=== PATIENT | female | born 1970 | race Caucasian/White ===

== ENCOUNTER 2020-09-25 06:56 | Outpatient (CLI) | payer OTHER, SELFPAY ==
[2020-09-25 09:25] LABS: Alanine Aminotransferase 25 U/L (14-59); Albumin Level 3.6 g/dL (3.4-5.0); Alkaline Phosphatase 102 U/L (46-116); Anion Gap 5 mmol/L (8-16); Aspartate Amino Transferase 17 U/L (15-37); Bilirubin,Total 0.6 mg/dL (0.00-1.00); Blood Urea Nitrogen 12 mg/dL (7-18); Calcium 9.2 mg/dL (8.5-10.1); Carbon Dioxide 32 mmol/L (21-32); Chloride 102 mmol/L (98-108); Cholesterol 170 mg/dL (0-200); Estimated Glomerular Filt Rate > 60; Glucose 93 mg/dL (70-99); HDL Direct 66 mg/dL (40-60); LDL Cholesterol Calculated 91 mg/dL (<130); Osmolality Calculated 287 mOsm/kg (285-295); Sodium 139 mmol/L (136-145); Total Protein 7.6 g/dL (6.4-8.2); Triglycerides 63 mg/dL (0-150)
== END 2020-09-25 06:57 | disposition home or self-care (01) ==
PROVIDERS: PCP Family Medicine
DX: E78.2 Mixed hyperlipidemia (principal)
CPT/HCPCS: 36415; 80053; 80061

== ENCOUNTER 2020-12-21 06:41 | Emergency (ER) | payer OTHER, SELFPAY ==
--- NOTE | ~2020-12-21 | XR_ITS ---
XR shoulder RT min 2V 12/21/2020 08:08 Indication: Right shoulder Procedure: 4 views right shoulder Comparison: No prior studies for comparison. Findings: No fracture, subluxation or dislocation. There is anatomic alignment of the right shoulder. There is calcific tendinopathy. Impression: 1: No acute bone or joint abnormality. Reviewed, dictated and finalized at location A. Impression: 1: No acute bone or joint abnormality.
--- NOTE | ~2020-12-21 | XR_ITS ---
EXAMINATION: XR chest 1V portable 12/21/2020 08:08 INDICATION: Left-sided chest pain PROCEDURE: AP upright view of the chest COMPARISON: 09/02/2006 FINDINGS: The lungs are clear. The cardiomediastinal silhouette is within normal limits. There are no pleural effusions. There is no pneumothorax suspected. IMPRESSION: 1: NO ACUTE CARDIOPULMONARY DISEASE. Reviewed, dictated and finalized at location A.
[2020-12-21 06:50] VITALS: BP 124/84; PULSE 79; RESP 20; TEMP 36.4; O2SAT 99
--- NOTE | 2020-12-21 07:33 | ECG_ITS ---
Measurements Intervals [place] Rate: 71 P: 37 MI: 144 QRS: -14 QRSD: 94 T: 24 QT: 342 QTc: 374 Interpretive Statements SINUS RHYTHM INCOMPLETE RIGHT BUNDLE BRANCH BLOCK LOW QRS VOLTAGE IN PRECORDIAL LEADS BASELINE ARTIFACT- I, II, III, AVR, AVF, V1-V2 BORDERLINE ECG Electronically Signed On 12-22-2020 9:50:02 CDT by Mynor Solorio D.O.
[2020-12-21] MEDS: KETOROLAC (*BKC) 60 MG/2 ML VIAL IM (07:46)
[2020-12-21] MEDS: ASPIRIN 325 MG ENTERIC TABLET PO (07:46)
[2020-12-21 08:02] LABS: Basophils Absolute Auto 0.03 K/mm3 (0.00-0.10); Basophils Percent Auto 0.4 % (0.0-1.0); Eosinophils Absolute Auto 0.05 K/mm3 (0.02-0.50); Eosinophils Percent Auto 0.7 % (1.0-6.0); Immature Granulocyte Absolute 0.02 K/mm3 (0.00-0.00); Immature Granulocyte Percent A 0.3 % (0.0-0.0); Lymphocytes Absolute Auto 1.07 K/mm3 (1.10-4.50); Lymphocytes Percent Auto 15.2 % (18.0-42.0); Mean Corpuscular HGB Conc 32.5 g/dL (32.0-36.0); Mean Corpuscular Hemoglobin 29.7 pg (27.0-31.0); Mean Corpuscular Volume 91.5 fL (78.0-102.0); Mean Platelet Volume 9.1 fl (9.2-11.8); Monocytes Absolute Auto 0.49 K/mm3 (0.10-0.90); Neutrophils Absolute Auto 5.4 K/mm3 (1.7-7.2); Neutrophils Percent Auto 76.4 % (50.0-70.0); Platelet Count Result 350 K/mm3 (150-420); Red Blood Count 4.37 M/mm3 (4.20-5.40); Red Cell Distribution Width 13.2 % (11.6-14.4)
--- NOTE | 2020-12-21 09:52 | ED.UPPEXIN ---
HPI - Extremity Injury (Upper) General Chief Complaint: Extremity Injury, Upper Stated Complaint: right arm pain Time Seen by Provider: 12/21/20 07:04 Source: patient and RN notes reviewed Mode of arrival: ambulatory Limitations: no limitations History of Present Illness complaint: injury to: right and shoulder Onset (ago): day(s) (4) Other Extremity Injury: Right: shoulder Other injuries: none Place: home Severity: moderate Severity scale (1-10): 8 Relieving factors: rest Exacerbating factors: movement of extremity Associated symptoms: other (left chest pain) Related Data Home Medications Medication Instructions Recorded Confirmed bupropion HCl 150 mg PO DAILY 12/21/20 12/21/20 Allergies Allergy/AdvReac Type Severity Reaction Status Date / Time clopidogrel [Plavix] Allergy Intermediate Unknown Verified 12/21/20 08:25 Sulfa (Sulfonamide Allergy Unknown Verified 12/21/20 08:25 Antibiotics) Review of Systems Review of Systems: All systems reviewed & are unremarkable except as noted in HPI and below Constitutional: Constitutional: Reports as per HPI and Reports no additional constitutional complaints Eyes: Eyes: Reports as per HPI and Reports no additional eye complaints ENT: Reports system reviewed and no additional complaints, except as documented and Reports as per HPI Cardiovascular: Cardiovascular: Reports as per HPI, Reports no additional cardiovascular complaints and Reports chest pain Respiratory: Respiratory: Reports as per HPI and Reports no additional respiratory complaints Gastrointestinal: Gastrointestinal: Reports as per HPI and Reports no additional gastrointestinal complaints Genitourinary: Genitourinary: Reports no additional female genitourinary complaints and Reports as per HPI Musculoskeletal: Musculoskeletal: Reports no additional musculoskeletal complaints and Reports as per HPI Integumentary/Breasts: Skin/Breast: Reports system reviewed and no additional complaints, except as docu and Reports as per HPI Neurologic: Reports system reviewed and no additional complaints, except as documented and Reports as per HPI Psychiatric: Psychiatric: Reports no additional psychiatric complaints and Reports as per HPI Endocrine: Endocrine: Reports no additional endocrine complaints and Reports as per HPI Hematologic/Lymphatic: Hematologic/Lymphatic: Reports no additional hematologic/lymphatic complaints and Reports as per HPI Allergic/Immunologic: Allergic/Immunologic: Reports no additional allergic/immunologic complaints and Reports as per HPI PMF Past Medical History Medical History Myocardial infarction Other sprain of right shoulder joint, initial encounter Exam Const: General: no acute distress and alert Nutritional Appearance: well nourished Orientation/consciousness: patient oriented x3 Limitations: no limitations HENMT: Head: normal to inspection Ears: external ears normal and TM's normal bilaterally General nose exam: Normal external nose present and Normal nares present Mouth: Yes lip normal and Yes moist mucous membranes Teeth and gingiva: dentition normal Throat: posterior oropharynx normal Eyes: Conjunctivae: conjunctivae normal Pupils: Equal, round and reactive pupils present EOM: EOMs intact bilaterally Neck: Neck: normal visual inspection and no lymphadenopathy Chest: Chest palpation & inspection: normal inspection of the chest Other: no acute chest wall Resp: Effort & Inspection: normal respiratory effort Auscultation: clear to auscultation bilaterally Cardio: Rate: regular rate Rhythm: regular rhythm GI: GI Palp: Yes Soft to palpation Percussion: Yes normal to percussion Auscultation: normal bowel sounds : General: Yes no CVA tenderness Back/Spine/Pelvis: Back: no CVA tenderness Skin: General skin exam: normal color Rashes: no rashes Neuro: General: patient oriented x3, moves all
[2020-12-21 10:00] VITALS: RESP 17
[2020-12-21 10:33] LABS: Anion Gap 9 mmol/L (8-16); Blood Urea Nitrogen 13 mg/dL (7-18); Carbon Dioxide 26 mmol/L (21-32); Chloride 103 mmol/L (98-108); Estimated CRCL calculation 91 ml/min; Estimated Glomerular Filt Rate > 60; Potassium 3.9 mmol/L (3.5-5.1); Sodium 138 mmol/L (136-145)
[2020-12-21 10:34] LABS: Alanine Aminotransferase 16 U/L (14-59); Aspartate Amino Transferase 35 U/L (15-37); Bilirubin,Total 0.5 mg/dL (0.00-1.00); Calcium 9.3 mg/dL (8.5-10.1); Glucose 99 mg/dL (70-99); Osmolality Calculated 286 mOsm/kg (285-295)
[2020-12-21 10:36] LABS: Albumin Level 4.1 g/dL (3.4-5.0); Alkaline Phosphatase 82 U/L (46-116); Total Protein 7.6 g/dL (6.4-8.2)
[2020-12-21 10:47] LABS: Troponin I < 12.0 ng/L (0.00-60.4)
== END 2020-12-21 10:05 | disposition home or self-care (01) ==
PROVIDERS: Emergency Provider Emergency Medicine; PCP Family Medicine
DX: S43.401A Unspecified sprain of right shoulder joint, initial encounter (principal); R07.89 Other chest pain
CPT/HCPCS: 36415; 71045; 73030; 80053; 84484; 85025; 93005; 96372; 99283; 99284; A4565; A9270; J1885

== ENCOUNTER 2021-02-05 18:33 | Emergency (ER) | payer OTHER, SELFPAY ==
[2021-02-05 18:49] VITALS: BP 157/97; PULSE 86; RESP 20; TEMP 36.8; O2SAT 98
--- NOTE | 2021-02-05 19:33 | ED.URI ---
HPI - URI/Sore Throat General Chief Complaint: Upper Respiratory Infection Stated Complaint: possible strep Mode of arrival: ambulatory History of Present Illness HPI Narrative: this is a 50-year-old female who presents with a one-week history of sore throat red swollen and tender throat with some tender and swollen submandibular glands with low-grade fever no chills no shortness of breath no nausea vomiting. MD elicited complaint: sore throat Onset (ago): week(s) Consistency: constant Severity: moderate Related Data Home Medications Medication Instructions Recorded Confirmed bupropion HCl 150 mg PO DAILY 12/21/20 12/21/20 Allergies Allergy/AdvReac Type Severity Reaction Status Date / Time clopidogrel [Plavix] Allergy Intermediate Unknown Verified 12/21/20 08:25 Sulfa (Sulfonamide Allergy Unknown Verified 12/21/20 08:25 Antibiotics) Review of Systems Review of Systems: All systems reviewed & are unremarkable except as noted in HPI and below PMFSH Past Medical History Medical History Myocardial infarction Other sprain of right shoulder joint, initial encounter Exam Const: General: no acute distress Orientation/consciousness: patient oriented x3 HENMT: Head: normal to inspection Eyes: Conjunctivae: conjunctivae normal Pupils: Equal, round and reactive pupils present Neck: Neck: normal visual inspection and lymphadenopathy Other: Tender bilateral submandibular gland Chest: Chest palpation & inspection: normal inspection of the chest Resp: Effort & Inspection: normal respiratory effort Cardio: Rate: regular rate Rhythm: regular rhythm GI: GI Palp: Yes Soft to palpation Urinary Catheter: Urinary Catheter: patent and draining Skin: General skin exam: normal color Rashes: no rashes Neuro: General: patient oriented x3 and moves all extremities Psych: Mental Status: mental status grossly normal Course Course Emergency Course: rapid strep negative, will give a dose of Augmentin for acute pharyngitis Vital Signs Vital signs: Vital Signs Temperature 36.8 C 02/05/21 18:49 Pulse Rate 86 02/05/21 18:49 Respiratory Rate 20 02/05/21 18:49 Blood Pressure 157/97 H 02/05/21 18:49 Pulse Oximetry 98 02/05/21 18:49 Temperature 36.8 C 02/05/21 18:49 Pulse Rate 86 02/05/21 18:49 Respiratory Rate 20 02/05/21 18:49 Blood Pressure 157/97 H 02/05/21 18:49 Pulse Oximetry 98 02/05/21 18:49 MDM - URI/Sore Throat Lab Data Labs: Lab Results 02/05/21 Range/Units 19:10 Grp A Beta Strep Ag Negative Critical Care Time Critical Care Time Critical Care Time: No Discharge Plan Discharge Clinical Impression: Pharyngitis Qualifiers: Pharyngitis/tonsillitis etiology: other specified organisms Qualified Code(s): J02.8 - Acute pharyngitis due to other specified organisms Patient Disposition: Home, Self-Care Condition: Stable Instructions: Antibiotic Form, Pharyngitis (ED) Additional Instructions: take medicine as prescribed and follow-up primary care physician if symptoms persist or worsen. Prescriptions: New amoxicillin-pot clavulanate [Augmentin] 875-125 mg tablet 1 tablet PO Q12H Qty: 20 RF: 0 No Action bupropion HCl 150 mg tablet sustained-release 12 hr 150 mg PO DAILY RF: 0 ibuprofen 800 mg tablet 800 mg PO TID PRN (Reason: pain) Qty: 20 RF: 0 omeprazole magnesium [Prilosec OTC] 20 mg tablet,delayed release (DR/EC) 20 mg PO BID Qty: 20 RF: 0 tramadol 50 mg tablet 50 mg PO Q8H PRN (Reason: pain) Qty: 6 RF: 0 Follow-up/Referrals: Oneal Griffiths M.D. [Primary Care Provider] - Time of Disposition: 19:36
[2021-02-05] MEDS: AMOXICILLIN/CLAVULANATE K 875-125 MG TAB 1 TABLET PO (19:42)
== END 2021-02-05 19:46 | disposition home or self-care (01) ==
PROVIDERS: Emergency Provider Emergency Medicine; PCP Family Medicine
DX: J02.8 Acute pharyngitis due to other specified organisms (principal)
CPT/HCPCS: 87081; 87880; 99283; A9270

== ENCOUNTER 2022-10-20 06:57 | Outpatient (CLI) | payer OTHER, BC, SELFPAY ==
[2022-10-20 07:57] LABS: Anion Gap 10 mmol/L (8-16); Blood Urea Nitrogen 13 mg/dL (7-18); Calcium 9.1 mg/dL (8.5-10.1); Carbon Dioxide 29 mmol/L (21-32); Chloride 102 mmol/L (98-108); Cholesterol 179 mg/dL (0-200); Estimated Glomerular Filt Rate > 60; Glucose 94 mg/dL (70-99); HDL Direct 64 mg/dL (40-60); LDL Cholesterol Calculated 100 mg/dL (<130); Osmolality Calculated 292 mOsm/kg (285-295); Potassium 4.1 mmol/L (3.5-5.1); Sodium 141 mmol/L (136-145); Triglycerides 77 mg/dL (0-150)
== END 2022-10-20 06:58 | disposition home or self-care (01) ==
PROVIDERS: PCP Family Medicine
DX: E78.2 Mixed hyperlipidemia (principal)
CPT/HCPCS: 36415; 80048; 80061

== ENCOUNTER 2023-02-17 06:57 | Outpatient (CLI) | payer OTHER, BC, SELFPAY ==
[2023-02-17 08:07] LABS: Alanine Aminotransferase 21 U/L (14-59); Albumin Level 3.5 g/dL (3.4-5.0); Alkaline Phosphatase 100 U/L (46-116); Anion Gap 9 mmol/L (8-16); Aspartate Amino Transferase 12 U/L (15-37); Bilirubin,Total 0.4 mg/dL (0.00-1.00); Blood Urea Nitrogen 9 mg/dL (7-18); Calcium 9.8 mg/dL (8.5-10.1); Carbon Dioxide 27 mmol/L (21-32); Chloride 104 mmol/L (98-108); Cholesterol 200 mg/dL (0-200); Estimated Glomerular Filt Rate > 60; Glucose 96 mg/dL (70-99); HDL Direct 61 mg/dL (40-60); LDL Cholesterol Calculated 119 mg/dL (<130); Osmolality Calculated 288 mOsm/kg (285-295); Potassium 4.1 mmol/L (3.5-5.1); Sodium 140 mmol/L (136-145); Total Protein 7.3 g/dL (6.4-8.2); Triglycerides 101 mg/dL (0-150)
== END 2023-02-17 06:58 | disposition home or self-care (01) ==
LOC: CHSLAB 07:02
PROVIDERS: PCP Family Medicine
DX: E78.2 Mixed hyperlipidemia (principal)
CPT/HCPCS: 36415; 80053; 80061

== ENCOUNTER 2023-03-03 11:41 | Outpatient (CLI) | payer OTHER, BC, SELFPAY ==
--- NOTE | ~2023-03-03 | MM_ITS ---
EXAMINATION: MM screening [facility] BI w parisa HISTORY: Screening TECHNIQUE: Craniocaudal and mediolateral oblique 3-D tomosynthesis images were obtained and synthetic 2-D images were generated. CAD analysis was submitted and interpreted. COMPARISON: No prior mammogram is available for comparison at this institution. BREAST PARENCHYMAL COMPOSITION: Breast composed of scattered areas of fibroglandular density FINDINGS: There are bilateral asymmetries in the outer aspect of both breasts on CC views. There are no suspicious calcifications or architectural distortion in either breast to suggest malignancy. IMPRESSION: 1. Bilateral breast asymmetries laterally in both breasts. 2. Additional mammographic views and possible breast ultrasound are recommended. BI-RADS Category 0: Incomplete: Needs additional imaging evaluation. Reviewed, dictated and finalized at location A. IMPRESSION: 1. Bilateral breast asymmetries laterally in both breasts. 2. Additional mammographic views and possible breast ultrasound are recommended . BI-RADS Category 0: Incomplete: Needs additional imaging evaluation.
== END 2023-03-03 11:42 | disposition home or self-care (01) ==
PROVIDERS: PCP Family Medicine; Visit Provider Family Medicine
DX: Z12.31 Encounter for screening mammogram for malignant neoplasm of breast (principal)
CPT/HCPCS: 77063; 77067

== ENCOUNTER 2023-06-13 07:45 | Outpatient (CLI) | payer OTHER, BC, SELFPAY ==
--- NOTE | ~2023-06-13 | US_ITS ---
Pelvic ultrasound. Clinical History: Excessive or frequent menstruation Technique: Realtime transabdominal and transvaginal scanning of the pelvis was performed. Color flow Doppler and Doppler spectral analysis were performed. Findings: The uterus is anteverted. The endometrial stripe is poorly delineated.. Probable ill-defin ed intramural versus submucosal fibroid measures 2 cm in diameter. Neither ovary seen. No other adnexal mass seen. There is no evidence of free fluid in the cul de sac. Impression: Probable 2 cm uterine fibroid, as detailed above. Poor delineation of the endometrial stripe. Reviewed, dictated and finalized at location . DULING AGENT Impression: Probable 2 cm uterine fibroid, as detailed above. Poor delineation of the endom etrial stripe.
== END 2023-06-13 07:46 | disposition home or self-care (01) ==
LOC: CHSIMG 07:49
PROVIDERS: PCP Family Medicine; Visit Provider Nurse Practitioner Family
DX: N92.0 Excessive and frequent menstruation with regular cycle (principal)
CPT/HCPCS: 76830; 76856

== ENCOUNTER 2024-02-17 04:03 | Day surgery (SDC) | payer OTHER, SELFPAY ==
--- NOTE | 2023-11-16 17:10 | PC.NURSE ---
Patient called on 11/14/2023 and thought she was scheduled on 12/09/2023 and not 11/25/2023. Her spouse Alexx is also sched. on the same day. They were scheduled on 09/09/2023. She asked why they would be moved from 12/09/2023 to 11/25/2023 without their knowledge? I explained that I could only see that they were sched. on 09/09/23 and resched. to 11/25/23 and that I do apologize if there was a misunderstanding about the date. However the doctor is not here on 12/09/2023 and they are scheduled on 11/25/2023, if they are not able to make the 12th I would be happy to reschedule them but it will be difficult to get them both on the same date until Jan. as our schedule is full. I could get them rescheduled sooner if they would be okay to do separate dates. She states she will have to call back after speaking with her . 11/15/2023- messages left for pt to call back to confirm the 12th or to reschedule. 11/16/23 message left to call back, called spouse Alexx who is also scheduled same day and spoke to him. He states he will talk to and have her call us back. 1700 no return call regarding procedures on 11/25/2023 called and left message to please call back so we can do pre-op interviews and confirm proc. for 11/25/2023 or reschedule them as soon as possible for another date.
[2024-02-07 10:43] VITALS: BMI 37.8
--- NOTE | 2024-02-17 08:14 | P.PNAN_ITS ---
Anes - Initial Pre Proc Eval Procedure: Operation Date: 02/17/24 10:30 Proposed Procedures p Esophagogastroduodenoscopy & Colonoscopy - Tee Monroy MD Date/Time: 02/17/24 08:14 Surgeon: Tee Monroy MD Pre Op Diagnosis: Foreign body sensation throat,GERD,neoplasm Patient Data Age: 53 Gender: F Height: 1.63 m Weight: 100 kg Allergies Allergy/AdvReac Type Severity Reaction Status Date / Time clopidogrel [Plavix] Allergy Intermediate Rash Verified 02/17/24 09:26 Sulfa (Sulfonamide Allergy Intermediate Rash Verified 02/17/24 09:26 Antibiotics) Home Medications Medication Instructions Recorded Confirmed Type bupropion HCl 150 mg tablet,12 hr 150 mg PO DAILY 12/21/20 02/17/24 History sustained-release omeprazole 40 mg capsule,delayed See Rx Instructions .Route 12/02/23 02/17/24 Rx release .COMPLEX #30 caps rizatriptan 10 mg tablet 10 mg PO PRN PRN Migraine Headache 02/07/24 02/17/24 History Patient hx anesthesia problems: none Family hx anesthesia problems: none Results Review: All pre-operative results and documents have been reviewed as part of the pre- operative evaluation. REPLACED BY [facility] Past Medical History Medical History (Updated 06/30/23 @ 16:08 by Jeanette Geronimo, COLLEEN) Colon cancer screening Dysphagia GERD (gastroesophageal reflux disease) Globus sensation Myocardial infarction Obesity Other sprain of right shoulder joint, initial encounter Family History Family History Father Heart disease Social History Social History Smoking status: Never smoker Alcohol intake: current Alcohol use details: rare Substance use: never Do You Feel Safe in your Home?: Yes Lack of Transportation: No Lack of Food: Never True Current Housing: I Have Housing Concerned About Future Housing: No Difficulty Paying Gas/Electric Bills: No Difficulty Paying for Meds: No Education: Associate Degree Difficulty w/ Childcare or Family Care: No Living arrangements: with family Occupation/Education: occupation Gender identity (if verbalized by the patient): Female Sexual Orientation (if Verbalized by the Patient): Straight or Heterosexual Spiritual care concerns: No Anes - Eval Final PreProcedure Day of Procedure 02/17/24 08:14 Patient weight: obese Heart: regular rate and rhythm Lungs: clear to auscultation Airway: Mallampati scale class II Neurological: alert and oriented Last oral intake: >/= 8 hours ASA classification: III Emergent: no Anesthetic plan: proceed Anesthesia type and monitoring: general GIVS and standard monitoring Results Review: All pre-operative results and documents have been reviewed as part of the pre- operative evaluation. Informed Consent: The patient's anesthetic plan and its attendant risks and benefits were discussed with the patient/family/POA. Questions were solicited and answers provided to the satisfaction of the patient/family/POA.
[2024-02-17 09:05] VITALS: BP 160/90; PULSE 84; RESP 18; TEMP 36.3; O2SAT 100
[2024-02-17] MEDS: LACTATED RINGERS 1,000 ML 150 ML IV CONT (09:39)
[2024-02-17 10:11] LABS: Beta HCG Quantitative < 2.39 mIU/ML
--- NOTE | 2024-02-17 10:22 | PM.HPGS ---
History of Present Illness History of Present Illness Consent: Risks, benefits, and alternatives have been discussed and questions answered. Patient agrees to proceed with procedure. Chief complaint: Foreign body sensation throat,GERD,neoplasm Narrative: Eli Quispe is a 53 year old female with dysphagia, also needs screening colonoscopy Review of Systems Review of Systems: All systems reviewed & are unremarkable except as noted in HPI and below PMFSH Past Medical History Medical History (Updated 06/30/23 @ 16:08 by Jeanette Geronimo, RAILROAD REPAIRER) Colon cancer screening Dysphagia GERD (gastroesophageal reflux disease) Globus sensation Myocardial infarction Obesity Other sprain of right shoulder joint, initial encounter Family History Family History Father Heart disease Social History Social History Smoking status: Never smoker Alcohol intake: current Alcohol use details: rare Substance use: never Do You Feel Safe in your Home?: Yes Lack of Transportation: No Lack of Food: Never True Current Housing: I Have Housing Concerned About Future Housing: No Difficulty Paying Gas/Electric Bills: No Difficulty Paying for Meds: No Education: Associate Degree Difficulty w/ Childcare or Family Care: No Living arrangements: with family Occupation/Education: occupation Gender identity (if verbalized by the patient): Female Sexual Orientation (if Verbalized by the Patient): Straight or Heterosexual Spiritual care concerns: No Meds Home Medications and Allergies Home Medications Medication Instructions Recorded Confirmed Type bupropion HCl 150 mg tablet,12 hr 150 mg PO DAILY 12/21/20 02/17/24 History sustained-release omeprazole 40 mg capsule,delayed See Rx Instructions .Route 12/02/23 02/17/24 Rx release .COMPLEX #30 caps rizatriptan 10 mg tablet 10 mg PO PRN PRN Migraine Headache 02/07/24 02/17/24 History Allergies Allergy/AdvReac Type Severity Reaction Status Date / Time clopidogrel [Plavix] Allergy Intermediate Rash Verified 02/17/24 09:26 Sulfa (Sulfonamide Allergy Intermediate Rash Verified 02/17/24 09:26 Antibiotics) Vital Signs Vital Signs - 24 hr 02/17/24 09:05 Temperature 97.4 F L Pulse Rate 84 Respiratory Rate 18 Blood Pressure 160/90 H Pulse Oximetry 100 Oxygen Delivery Room Air Exam Const: General: comfortable and no acute distress HENMT: Face/Nose/Sinus: Normal nares present Eyes: General: appearance normal, both eyes and all related structures Neck: Neck: no JVD Resp: Auscultation: clear to auscultation bilaterally Cardio: Rate: regular rate Rhythm: regular rhythm GI: Inspection: non-distended GI Palp: Yes Soft to palpation Skin: General skin exam: normal color Neuro: General: gait normal Speech: normal speech Extrem: General: normal to inspection Psych: Mental Status: mental status grossly normal Assessment and Plan Assessment and plan (1) Colon cancer screening: Code(s): Z12.11 - Encounter for screening for malignant neoplasm of colon Status: Acute Assessment and Plan: colonoscopy (2) Dysphagia: Code(s): R13.10 - Dysphagia, unspecified Status: Acute Assessment and Plan: egd
[2024-02-17 10:51] VITALS: BP 127/68; PULSE 87; RESP 19; O2SAT 100
[2024-02-17 11:01] VITALS: BP 133/73; PULSE 71; RESP 17; O2SAT 99
[2024-02-17 11:11] VITALS: BP 146/71; PULSE 71; RESP 18; O2SAT 100
== END 2024-02-17 11:20 | disposition home or self-care (01) ==
PROVIDERS: Anesthesiology; PCP Family Medicine; Visit Provider Internal Medicine Gastroenterology
PROC: 0DJ08ZZ Inspection of Upper Intestinal Tract, Via Natural or Artificial Opening Endoscopic (ICD-10-PCS; CPT 43235; principal; 2024-02-17 10:30)
DX: Z12.11 Encounter for screening for malignant neoplasm of colon (principal); K57.30 Diverticulosis of large intestine without perforation or abscess without bleeding; K64.8 Other hemorrhoids; K22.2 Esophageal obstruction; K44.9 Diaphragmatic hernia without obstruction or gangrene; K21.9 Gastro-esophageal reflux disease without esophagitis; I25.2 Old myocardial infarction; E66.9 Obesity, unspecified; Z68.38 Body mass index [BMI] 38.0-38.9, adult
CPT/HCPCS: 45378; 43249; 43239; 36415; 84702; 88305; C1726; J2704; J7120

== ENCOUNTER 2024-07-20 07:02 | Outpatient (CLI) | payer OTHER, SELFPAY ==
--- OUTSIDE RECORDS SUMMARY | 2024-07-20 07:06 | XMS_ITS | Clinical Summary ---
Author Organization [facility] Address [address] [place] [address] Phone Care Team Providers Care Induction Machine Setter Name Role Phone Provider, None Primary Care Provider Unavailabl e Active Problems Problem Noted Date Diagnosed Date Adjustment disorder with mixed anxiety and depre ssed mood 12/06/2015 Social History Tobacco Use Types Packs/Day Years Used Date Smoking Tobacco: Never Smokeless Tobacco: Never Alcohol Use Standard Drinks/Week Comments No 0 (1 standard drink = 0.6 oz pur e alcohol) Sexually Active Control Partners Comments Yes Male Comments Unknown Sex and Gender Information Value Date Recorded Sex Assigned at Not on file Legal Sex Female 4:02 PM CDT Gender Identity Not on file Sexual Orientation Not on file Plan of Treatment Health Maintenance Due Date Last Done Comments Hepatitis C Virus (HCV) Screening 1968 TdaP Immunization 1968 Hepatitis B Immunization (1 of 3 - 19+ 3-dose series) 1987 Pap Smear 1989 Cervical Cancer Screening (CCS) 1998 HPV/Cotest 1998 Colonoscopy 2013 Colorectal Cancer Screening 2013 Cologuard 2018 Immunochemical Fecal Occult Blood 2018 Mammogram 2018 Pneumococcal Immunization (5 0+ years) (1 of 1 - PCV) 2018 Zoster Immunization (1 of 2) 2018 Influenza Immunization (#1) 2024 SARS-COV-2 Immunization ( - 2023- season) 2024 Respiratory Syncytial Virus (RSV) Immunization (Adult) (1 - 1-dose 75+ series) 2043 Meningococcal Immunization (ACWY) Aged Out No longer eligible based on patient's age to complete this topic Pneumococcal Immunization Combined Aged Out No longer eligible based on patient's age to complete this topic Rotavirus Immunization Aged Out No lo nger eligible based on patient's age to complete this topic Care Teams Induction Machine Setter Relationship Specialty Start Date End Date Provider, None [place] PCP - General 12/06/15
[2024-07-20 07:59] LABS: Anion Gap 5 mmol/L (4-12); Blood Urea Nitrogen 10 mg/dL (7-18); Calcium 9.4 mg/dL (8.5-10.1); Carbon Dioxide 32 mmol/L (21-32); Chloride 104 mmol/L (98-108); Cholesterol 164 mg/dL (0-200); Estimated Glomerular Filt Rate > 60; Glucose 99 mg/dL (70-99); HDL Direct 60 mg/dL (40-60); LDL Cholesterol Calculated 91 mg/dL (<130); Osmolality Calculated 291 mOsm/kg (285-295); Sodium 141 mmol/L (136-145); Triglycerides 64 mg/dL (0-150)
== END 2024-07-20 07:03 | disposition home or self-care (01) ==
LOC: CHSLAB 07:04
PROVIDERS: PCP Family Medicine; Visit Provider Nurse Practitioner Family
DX: E78.2 Mixed hyperlipidemia (principal)
CPT/HCPCS: 36415; 80048; 80061

== ENCOUNTER 2024-08-06 08:14 | Outpatient (CLI) | payer OTHER, SELFPAY ==
--- NOTE | ~2024-08-06 | MM_ITS ---
EXAMINATION: MM screening [facility] BI w parisa HISTORY: Screening TECHNIQUE: Craniocaudal and mediolateral oblique 3-D tomosynthesis images were obtained and synthetic 2-D images were generated. CAD analysis was submitted and interpreted. COMPARISON: 03/03/2023 and dating back to 04/18/2013 BREAST PARENCHYMAL COMPOSITION: There are scattered areas of fibroglandular density. FINDINGS: Punctate calcifications are detected bilaterally, secretory in origin, stable and benign in appearance. Punctate calcifications detected bilaterally, stable and benign in appearance, and dermal in origin. Stable parenchymal pattern without suspicious microcalcifications, architectural distortion, discrete masses or significant asymmetry. IMPRESSION: 1. No mammographic evidence of malignancy. 2. Recommend routine screening mammography in one year. BI-RADS Category 2: Benign finding(s). Reviewed, dictated and finalized at location A.
--- OUTSIDE RECORDS SUMMARY | 2024-08-06 08:29 | XMS_ITS | Clinical Summary ---
Author Organization [facility] Address [address] [place] [address] Phone Care Team Providers Care Braddisher Name Role Phone Provider, None Primary Care [...] age to complete this topic Care Teams Braddisher Relationship Specialty Start Date End Date Provider, None [place] PCP - General 12/06/15
== END 2024-08-06 08:15 | disposition home or self-care (01) ==
PROVIDERS: PCP Family Medicine; Visit Provider Nurse Practitioner Family
DX: Z12.31 Encounter for screening mammogram for malignant neoplasm of breast (principal)
CPT/HCPCS: 77063; 77067

== ENCOUNTER 2024-08-13 23:41 | Emergency (ER) | payer OTHER, SELFPAY ==
[2024-08-13 23:42] VITALS: BP 176/83; PULSE 88; RESP 18; TEMP 36; O2SAT 99
--- OUTSIDE RECORDS SUMMARY | 2024-08-13 23:43 | XMS_ITS | Clinical Summary ---
Author Organization [facility] Address [address] [place] [address] Phone Care Team Providers Care Grape Grower Name Role Phone Provider, None Primary Care [...] age to complete this topic Care Teams Grape Grower Relationship Specialty Start Date End Date Provider, None [place] PCP - General 12/06/15
--- NOTE | 2024-08-13 23:48 | ED.FEMALEGU ---
HPI - Female Genitourinary General Chief complaint: Urogenital-Female Stated complaint: burning w urination Time Seen by Provider: 08/13/24 23:47 Source: patient Mode of arrival: ambulatory Limitations: no limitations History of Present Illness HPI Narrative: Burning urination and frequency started early today. She denies any fever, chills, nausea, vomiting or abdominal pain. She denies any vaginal bleeding or discharge. Related Data Home Medications ?Medication ?Instructions ?Recorded ?Confirmed ?Last Taken ?Type bupropion HCl 150 mg tablet,12 hr 150 mg PO DAILY 12/21/20 02/17/24 Unknown History sustained-release rizatriptan 10 mg tablet 10 mg PO PRN PRN Migraine Headache 02/07/24 02/17/24 Unknown History Allergies Allergy/AdvReac Type Severity Reaction Status Date / Time clopidogrel (Plavix) Allergy Intermediate Rash Verified 08/13/24 23:44 Sulfa (Sulfonamide Allergy Intermediate Rash Verified 08/13/24 23:44 Antibiotics) Review of Systems Review of Systems: All systems reviewed & are unremarkable except as noted in HPI and below PMFSH Past Medical History Medical History Obesity Colon cancer screening Globus sensation GERD (gastroesophageal reflux disease) Dysphagia Myocardial infarction Other sprain of right shoulder joint, initial encounter Family History Family History Father Heart disease Social History Social History Smoking status: Never smoker Alcohol intake: current Alcohol use details: rare Substance use: never Do You Feel Safe in your Home?: Yes Lack of Transportation: No Lack of Food: Never True Current Housing: I Have Housing Concerned About Future Housing: No Difficulty Paying Gas/Electric Bills: No Difficulty Paying for Meds: No Education: Associate Degree Difficulty w/ Childcare or Family Care: No Living arrangements: with family Occupation/Education: occupation Gender identity (if verbalized by the patient): Female Sexual Orientation (if Verbalized by the Patient): Straight or Heterosexual Spiritual care concerns: No Exam Narrative: General appearance: Well-developed, well-nourished Skin: Normal color Head: Normocephalic, nontraumatic Eyes: Clear conjunctiva ENT: Oropharynx normal, ears normal, nose normal Neck: Supple, nontender Chest and respiratory: Airway patent, no respiratory distress, no accessory muscle use Heart: Regular rate/rhythm Abdomen: Soft, nontender, no organomegaly, quiet bowel sounds Vascular: Normal peripheral pulses, normal capillary refill. Musculoskeletal: Normal range of motion, nontender back Neurologic: Alert and oriented ?3, ACCESS SERVICES ASSISTANT is normal as tested, no gross motor deficit Course Vital Signs Vital signs: Vital Signs Temperature 36.0 C L 08/13/24 23:42 Pulse Rate 88 08/13/24 23:42 Respiratory Rate 18 08/13/24 23:42 Blood Pressure 176/83 H 08/13/24 23:42 Pulse Oximetry 99 08/13/24 23:42 Oxygen Delivery Room Air 08/13/24 23:42 Temperature 36.0 C L 08/13/24 23:42 Pulse Rate 88 08/13/24 23:42 Respiratory Rate 18 08/13/24 23:42 Blood Pressure 176/83 H 08/13/24 23:42 Pulse Oximetry 99 08/13/24 23:42 Oxygen Delivery Room Air 08/13/24 23:42 MDM - Female Genitourinary MDM Narrative Medical decision making narrative: patient presents with dysuria Vital signs showing blood pressure 176/83 otherwise within normal limit Physical examination is insignificant Urinalysis showed evidence of infection Patient received Macrobid, Pyridium and ibuprofen prior to discharge Discharged on Macrobid and Pyridium. Patient declined to be off work tomorrow Differential Diagnosis Differential diagnosis: Likely urinary tract infection, cervicitis, vaginitis and cystitis Critical Care Time Critical Care Time Critical Care Time: No Discharge Plan Discharge Clinical Impression: Urinary tract infection Patient Disposition: Home, Self-Care Condition: Stable Instructions: Antibiotic Form, Urinary Tract Infection in Women (ED) Additional Instructions: Return if symptoms are worsening , call your family physician for appointment, take Tylenol , ibuprofen as as needed for aches and pain, continue home medications. Patient Language: Turkish Prescriptions: New nitrofurantoin monohyd/m-cryst [Macrobid] 100 mg capsule 100 mg PO Q12H 5 Days Qty: 10 0RF Rx Instructions: must administer with a meal/food phenazopyridine [Pyridium] 200 mg tablet 200 mg PO TID PRN (Reason: pain) Qty: 6 0RF No Action bupropion HCl 150 mg tablet sustained-release 12 hr 150 mg PO DAILY rizatriptan 10 mg tablet 10 mg PO PRN PRN (Reason: Migraine Headache) omeprazole 40 mg capsule,delayed release(DR/EC) See Rx Instructions .ROUTE .COMPLEX Qty: 30 6RF Dose Instruction: Take 1 capsule by mouth once daily Rx Instructions: Take 1 capsule by mouth once daily Follow-up/Referrals: Oneal Griffiths M.D. [Primary Care Provider] -
[2024-08-14 00:08] LABS: Add Urine Microscopic? YES; Appearance Urine Clear (Clear); Bilirubin Urine Negative (Negative); Blood Urine 2+ (Negative); Color Urine Light Yellow (Yellow); Glucose Urine UA Negative (Negative); Ketones Urine Negative (Negative); Leukocyte Esterase Ur 3+ LEU/UL (Negative); Nitrate Urine Positive (Negative); Protein Urine Negative (Negative); Specific Grav Ur 1.015 (1.010-1.020); Urobilinogen Urine 0.2 mg/dL (0.2-1.0)
[2024-08-14 00:13] LABS: Bacteria Urine 2+ /hpf; Squamous Epithelial Cell Urine Few /hpf (Few); WBC Urine 31-50 /hpf (0-3)
[2024-08-14] MEDS: IBUPROFEN 600 MG TABLET PO (00:23)
[2024-08-14] MEDS: PHENAZOPYRIDINE HCL 100 MG TABLET 200 MG PO (00:23)
[2024-08-14] MEDS: NITROFURANTOIN MONOHYD MACROCR 100 MG CAP PO (00:24)
--- NOTE | 2024-08-16 12:21 | PC.NURSE ---
Preliminary urine culture report; Escherichia coli, will wait for final culture and sensitivity per ERP Dr. Avila
== END 2024-08-14 00:55 | disposition home or self-care (01) ==
PROVIDERS: Emergency Provider Emergency Medicine; PCP Family Medicine
DX: N39.0 Urinary tract infection, site not specified (principal); I25.2 Old myocardial infarction
CPT/HCPCS: 81001; 87086; 87186; 99283; A9270

== ENCOUNTER 2024-11-19 12:38 | Emergency (ER) | payer OTHER, SELFPAY ==
--- NOTE | ~2024-11-19 | XR_ITS ---
EXAM/PROCEDURE: XR chest 1V portable - 11/19/2024 13:14 CDT HISTORY: 54 years old Female with cough and congestion TECHNIQUE: AP view(s) of the chest. COMPARISON: None available. FINDINGS: LUNGS/ PLEURA: No focal consolidation. No appreciable pneumothorax or large pleural effusion. HEART/ MEDIASTINUM: Heart appears normal in size. BONES: No acute osseous abnormality. OTHER: Visualized upper abdomen is unremarkable. IMPRESSION: No acute process. Reviewed, dictated and finalized at location A. IMPRESSION: No acute process.
[2024-11-19 12:38] VITALS: BP 170/86; PULSE 96; RESP 16; TEMP 37.1; O2SAT 98
--- OUTSIDE RECORDS SUMMARY | 2024-11-19 12:40 | XMS_ITS | Patient Health Record ---
Author Organization [facility] Address [address] [place], [place] [id number] Care Team Providers Care Push Bench Operator Helper Name Role Phone CALEB KNAPP Unavailable [phone] Oneal Griffiths Unavailable Unavailable Reason For Referral No Information Medications Medication SIG (Take, Route, Frequency, Duration) Notes Start Date End Date Status sertraline 100 MG Oral Tablet [Zoloft] ORAL sertraline 100 MG Oral Tablet [Zoloft]Original Medicationsertraline 100 MG Oral Tablet [Zoloft] *Reorder from [employer] for eRx and Interaction Alerts* 03/14/2012 Active aspirin 81 MG Effervescent Oral Tablet ORAL aspirin 81 MG Effervescent Oral TabletOriginal Medicationaspirin 81 MG Effervescent Oral Tablet *Reorder from [employer] for eRx and Interaction Alerts* 03/14/2012 Active Ibuprofen 100 MG Oral Tablet ORAL ibuprofen 100 MG Oral TabletOriginal Medicationibuprofen 100 MG Oral Tablet *Reorder from [email or web address] for eRx and Interaction Alerts* 03/14/2012 Active Plan Of Treatment No Information Insurance Providers Payer Name Payer Address Payer Phone Subscriber Number Group Number Insured Name Patient Relationship to Insured Coverage Start Date Coverage End Date R Stephany / EDIL [address] [id number] TUAN PAIGE Self - patient is the insured
--- OUTSIDE RECORDS SUMMARY | 2024-11-19 12:40 | XMS_ITS | Clinical Summary ---
Author Organization [facility] Address [address] [place] [address] Phone Care Team Providers Care Tile Sprayer Name Role Phone Provider, None Primary Care [...] age to complete this topic Care Teams Tile Sprayer Relationship Specialty Start Date End Date Provider, None [place] PCP - General 12/06/15
--- NOTE | 2024-11-19 13:11 | PC.NURSE ---
COVID SWAB AND STREP SWAB TAKEN DOWN TO LAB. PATIENT HAS CALL LIGHT IN REACH. DENIES ANY OTHER NEEDS. UPDATED PATIENT ON TIMES FOR LAB RESULTS
--- OUTSIDE RECORDS SUMMARY | 2024-11-19 13:14 | XMS_ITS | Clinical Summary ---
Author Organization [facility] Address [address] [place] [address] Phone Care Team Providers Care Retail Inventory Control Clerk Name Role Phone Provider, None Primary Care [...] age to complete this topic Care Teams Retail Inventory Control Clerk Relationship Specialty Start Date End Date Provider, None [place] PCP - General 12/06/15
[2024-11-19 13:39] LABS: Strep Group A RT-PCR NOT DETECTED (Negative)
[2024-11-19 13:50] LABS: Influenza A QL RT-PCR Negative (Negative); Influenza B QL RT-PCR Negative (Negative); RSV RNA, RT-PCR Negative (Negative); SARS-CoV-2 RNA PCR Negative (Negative)
--- NOTE | 2024-11-19 13:55 | ED_ITS ---
HPI - URI/Sore Throat General Chief Complaint: Upper Respiratory Infection Stated Complaint: URI Time Seen by Provider: 11/19/24 12:54 Source: patient Mode of arrival: ambulatory Limitations: no limitations History of Present Illness HPI Narrative: this is a 54-year-old female with 6 day history of cough congestion with some no shortness of breath does have yellow discharge with her cough with some no fever chills no chest pain no abdominal pain no nausea vomiting. MD elicited complaint: cough and nasal congestion Onset (ago): day(s) Consistency: constant Severity: mild Description of mucous: yellow Related Data Home Medications ?Medication ?Instructions ?Recorded ?Confirmed ?Last Taken ?Type bupropion HCl 150 mg tablet,12 hr 150 mg PO DAILY 12/21/20 02/17/24 Unknown History sustained-release rizatriptan 10 mg tablet 10 mg PO PRN PRN Migraine Headache 02/07/24 02/17/24 Unknown History Allergies Allergy/AdvReac Type Severity Reaction Status Date / Time clopidogrel (Plavix) Allergy Intermediate Rash Verified 11/19/24 12:55 Sulfa (Sulfonamide Allergy Intermediate Rash Verified 11/19/24 12:55 Antibiotics) Review of Systems Review of Systems: All systems reviewed & are unremarkable except as noted in HPI and below PMFSH Past Medical History Medical History Obesity Colon cancer screening Globus sensation GERD (gastroesophageal reflux disease) Dysphagia Myocardial infarction Other sprain of right shoulder joint, initial encounter Family History Family History Father Heart disease Social History Social History Smoking status: Never smoker Alcohol intake: current Alcohol use details: rare Substance use: never Do You Feel Safe in your Home?: Yes Lack of Transportation: No Lack of Food: Never True Current Housing: I Have Housing Concerned About Future Housing: No Difficulty Paying Gas/Electric Bills: No Difficulty Paying for Meds: No Education: Associate Degree Difficulty w/ Childcare or Family Care: No Living arrangements: with family Occupation/Education: occupation Gender identity (if verbalized by the patient): Female Sexual Orientation (if Verbalized by the Patient): Straight or Heterosexual Spiritual care concerns: No Exam Const: General: healthy appearing Nutritional Appearance: well nourished Orientation/consciousness: patient oriented x3 Limitations: no limitations HENMT: Head: normal to inspection Eyes: Conjunctivae: conjunctivae normal Neck: Neck: normal visual inspection, no lymphadenopathy and no meningeal signs Resp: Effort & Inspection: normal respiratory effort Auscultation: clear to auscultation bilaterally Cardio: Rate: regular rate Rhythm: regular rhythm GI: GI Palp: Yes Soft to palpation Course Course Emergency Course: Patient had negative chest x-ray and COVID RSV influenza strep all negative will treat upper respiratory/ bronchitis with antibiotics that will [facility]. Vital Signs Vital signs: Vital Signs Temperature 37.1 C 11/19/24 12:38 Pulse Rate 96 11/19/24 12:38 Respiratory Rate 16 11/19/24 12:38 Blood Pressure 170/86 H 11/19/24 12:38 Pulse Oximetry 98 11/19/24 12:38 Oxygen Delivery Room Air 11/19/24 12:38 Temperature 37.1 C 11/19/24 12:38 Pulse Rate 96 11/19/24 12:38 Respiratory Rate 16 11/19/24 12:38 Blood Pressure 170/86 H 11/19/24 12:38 Pulse Oximetry 98 11/19/24 12:38 Oxygen Delivery Room Air 11/19/24 12:38 MDM - URI/Sore Throat Lab Data Labs: Lab Results 11/19/24 Range/Units 12:54 Influenza A (RT-PCR) Negative (Negative) Influenza B (RT-PCR) Negative (Negative) RSV (RT-PCR) Negative (Negative) SARS-CoV-2 RNA (RT-PCR) Negative (Negative) Group A Strep (PCR) Not detected (Negative) Critical Care Time Critical Care Time Critical Care Time: No Discharge Plan Discharge Clinical Impression: Upper respiratory infection Qualifiers: URI type: unspecified URI Qualified Code(s): J06.9 - Acute upper respiratory infection, unspecified Patient Disposition: Home Condition: Stable Instructions: Antibiotic Form, Upper Respiratory Infection (ED) Additional Instructions: advised patient to take medication as prescribed and follow with primary care physician within 1 week for further evaluation and treatment. Patient Language: Slovenian Prescriptions: New azithromycin [Zithromax Z-Danilo] 250 mg tablet See Rx Instructions .ROUTE .COMPLEX Qty: 6 0RF Rx Instructions: For 250 mg dose pack: take 500 mg today (day 1), then 250 mg for 4 days (days 2-5) methylprednisolone [Medrol (Danilo)] 4 mg tablets,dose pack See Rx Instructions .ROUTE .COMPLEX Qty: 21 0RF Rx Instructions: for 6 days benzonatate 200 mg capsule 200 mg PO TID Qty: 30 0RF No Action bupropion HCl 150 mg tablet sustained-release 12 hr 150 mg PO DAILY nitrofurantoin monohyd/m-cryst [Macrobid] 100 mg capsule 100 mg PO Q12H 5 Days Qty: 10 0RF Rx Instructions: must administer with a meal/food phenazopyridine [Pyridium] 200 mg tablet 200 mg PO TID PRN (Reason: pain) Qty: 6 0RF rizatriptan 10 mg tablet 10 mg PO PRN PRN (Reason: Migraine Headache) omeprazole 40 mg capsule,delayed release(DR/EC) See Rx Instructions .ROUTE .COMPLEX Qty: 30 3RF Dose Instruction: Take 1 capsule by mouth once daily Rx Instructions: Take 1 capsule by mouth once daily Follow-up/Referrals: Oneal Griffiths M.D. [Primary Care Provider] - Time of Disposition: 13:59
--- NOTE | 2024-11-19 14:16 | ED_ITS ---
HPI - URI/Sore Throat General Chief Complaint: Upper Respiratory Infection Stated Complaint: URI Time Seen by Provider: 11/19/24 12:54 Source: patient Mode of arrival: ambulatory Limitations: no limitations History of Present Illness Severity: mild Related Data Home Medications ?Medication ?Instructions ?Recorded ?Confirmed ?Last Taken ?Type bupropion HCl 150 mg tablet,12 hr 150 mg PO DAILY 12/21/20 02/17/24 Unknown History sustained-release rizatriptan 10 mg tablet 10 mg PO PRN PRN Migraine Headache 02/07/24 02/17/24 Unknown History Allergies Allergy/AdvReac Type Severity Reaction Status Date / Time clopidogrel (Plavix) Allergy Intermediate Rash Verified 11/19/24 12:55 Sulfa (Sulfonamide Allergy Intermediate Rash Verified 11/19/24 12:55 Antibiotics) [facility] Past Medical History Medical History Obesity Colon cancer screening Globus sensation GERD (gastroesophageal reflux disease) Dysphagia Myocardial infarction Other sprain of right shoulder joint, initial encounter Family History Family History Father Heart disease Social History Social History Smoking status: Never smoker Alcohol intake: current Alcohol use details: rare Substance use: never Do You Feel Safe in your Home?: Yes Lack of Transportation: No Lack of Food: Never True Current Housing: I Have Housing Concerned About Future Housing: No Difficulty Paying Gas/Electric Bills: No Difficulty Paying for Meds: No Education: Associate Degree Difficulty w/ Childcare or Family Care: No Living arrangements: with family Occupation/Education: occupation Gender identity (if verbalized by the patient): Female Sexual Orientation (if Verbalized by the Patient): Straight or Heterosexual Spiritual care concerns: No Course Vital Signs Vital signs: Vital Signs Temperature 37.1 C 11/19/24 12:38 Pulse Rate 96 11/19/24 12:38 Respiratory Rate 16 11/19/24 12:38 Blood Pressure 170/86 H 11/19/24 12:38 Pulse Oximetry 98 11/19/24 12:38 Oxygen Delivery Room Air 11/19/24 12:38 Temperature 37.1 C 11/19/24 12:38 Pulse Rate 96 11/19/24 12:38 Respiratory Rate 16 11/19/24 12:38 Blood Pressure 170/86 H 11/19/24 12:38 Pulse Oximetry 98 11/19/24 12:38 Oxygen Delivery Room Air 11/19/24 12:38 MDM - URI/Sore Throat Lab Data Labs: Lab Results 11/19/24 Range/Units 12:54 Influenza A (RT-PCR) Negative (Negative) Influenza B (RT-PCR) Negative (Negative) RSV (RT-PCR) Negative (Negative) SARS-CoV-2 RNA (RT-PCR) Negative (Negative) Group A Strep (PCR) Not detected (Negative) Discharge Plan Discharge Clinical Impression: Upper respiratory infection Patient Disposition: Home Condition: Stable Instructions: Antibiotic Form, Upper Respiratory Infection (ED) Additional Instructions: advised patient to take medication as prescribed and follow with primary care physician within 1 week for further evaluation and treatment. Patient Language: Russian Prescriptions: New azithromycin [Zithromax Z-Danilo] 250 mg tablet See Rx Instructions .ROUTE .COMPLEX Qty: 6 0RF Rx Instructions: For 250 mg dose pack: take 500 mg today (day 1), then 250 mg for 4 days (days 2-5) methylprednisolone [Medrol (Danilo)] 4 mg tablets,dose pack See Rx Instructions .ROUTE .COMPLEX Qty: 21 0RF Rx Instructions: for 6 days benzonatate 200 mg capsule 200 mg PO TID Qty: 30 0RF No Action bupropion HCl 150 mg tablet sustained-release 12 hr 150 mg PO DAILY nitrofurantoin monohyd/m-cryst [Macrobid] 100 mg capsule 100 mg PO Q12H 5 Days Qty: 10 0RF Rx Instructions: must administer with a meal/food phenazopyridine [Pyridium] 200 mg tablet 200 mg PO TID PRN (Reason: pain) Qty: 6 0RF rizatriptan 10 mg tablet 10 mg PO PRN PRN (Reason: Migraine Headache) omeprazole 40 mg capsule,delayed release(DR/EC) See Rx Instructions .ROUTE .COMPLEX Qty: 30 3RF Dose Instruction: Take 1 capsule by mouth once daily Rx Instructions: Take 1 capsule by mouth once daily Follow-up/Referrals: Oneal Griffiths M.D. [Primary Care Provider] - Time of Disposition: 13:59
== END 2024-11-19 14:52 | disposition home or self-care (01) ==
PROVIDERS: Emergency Provider Emergency Medicine; PCP Family Medicine
DX: J06.9 Acute upper respiratory infection, unspecified (principal); I25.2 Old myocardial infarction; Z20.822 Contact with and (suspected) exposure to COVID-19
CPT/HCPCS: 71045; 87637; 87651; 99283